=== PATIENT | male | born 1965 | race Two or more races ===

== ENCOUNTER 2018-02-06 16:11 | Emergency (ER) | payer SELFPAY ==
[~2018-02-06] VITALS: Ht 175.3 cm; Wt 86.2 kg
[2018-02-06 17:14] VITALS: BP 124/83
== END 2018-02-06 17:52 | disposition home or self-care (01) ==
LOC: ER 16:11
DX: S01.111A Laceration without foreign body of right eyelid and periocular area, initial encounter (principal); X58.XXXA Exposure to other specified factors, initial encounter; Y93.89 Activity, other specified; Y99.8 Other external cause status; Y92.89 Other specified places as the place of occurrence of the external cause
CPT/HCPCS: 12011